=== PATIENT | male | born 1995 | race Caucasian/White ===

== ENCOUNTER 2017-04-30 22:48 | Emergency (ER) | payer MEDICAID, OTHER ==
[2017-04-30 23:01] VITALS: BP 102/63; PULSE 64; RESP 16; TEMP 98.5; O2SAT 99
[2017-04-30] MEDS ORDERED: Sodium Chloride 0.9% 1,000 ML IV STA (23:25)
[2017-04-30] MEDS ORDERED: Alum-Mag Hydrox-Simethicone Susp (30 mL) PO STA (23:25)
--- NOTE | 2017-04-30 23:28 | ED PDOC ---
Arrival/HPI - General Chief Complaint: GI Problem Time Seen by Provider: 04/30/17 22:49 Historian: Patient - History of Present Illness Narrative History of Present Illness (Text): 04/30/17 23:22 Dagoberto Patel is a 21 year old male who presents to the emergency department complaining of constant sharp, stabbing stomach pain for about five hours. Patient states that he took a pill to induce vomiting in an attempt to find relief. Patient was able to vomit but symptoms did not resolve. Patient denies any fever, chills, nausea, diarrhea, or any other complaint at this time. Time/Duration: 4-6 hours Symptom Onset: Gradual Symptom Course: Unchanged Severity Level: Mild Activities at Onset: Light Context: Home Past Medical History - Provider Review Nursing Documentation Reviewed: Yes - Infectious Disease Hx of Infectious Diseases: None - Psychiatric Hx Substance Use: No - Anesthesia Hx Anesthesia: No Family/Social History - Physician Review Nursing Documentation Reviewed: Yes Family/Social History: No Known Family HX Smoking Status: Heavy Smoker > 10 Cigarettes Daily Hx Alcohol Use: Yes Frequency of alcohol use: Socially Hx Substance Use: No Allergies/Home Meds Allergies/Adverse Reactions: Allergies No Known Allergies Allergy (Verified 02/01/16 02:22) Review of Systems - Physician Review All systems were reviewed & negative as marked: Yes - Review of Systems Constitutional: absent: Fevers, Night Sweats Eyes: absent: Vision Changes ENT: absent: Hearing Changes Respiratory: absent: SOB, Cough Cardiovascular: absent: Chest Pain Gastrointestinal: Abdominal Pain. absent: Diarrhea, Nausea Genitourinary Male: absent: Dysuria, Frequency Musculoskeletal: absent: Arthralgias, Back Pain, Neck Pain Skin: absent: Rash, Pruritis Neurological: absent: Headache, Dizziness Endocrine: absent: Diaphoresis Hemo/Lymphatic: absent: Adenopathy Psychiatric: absent: Anxiety, Depression Physical Exam - Physical Exam Narrative Physical Exam (Text): Constitutional: No acute distress. Head: Normocephalic. Atraumatic. Eyes: PERRL. ENT: Moist mucous membranes. Neck: Supple. Cardiovascular: Regular rate. Chest: No tenderness. Respiratory: Clear to auscultation bilaterally. GI: Soft. Nontender. Nondistended. Back: No CVA tenderness. Musculoskeletal: No tenderness or swelling of extremities. Skin: No rash. Neurologic: Alert, no focal deficit. Vital Signs Reviewed: Yes Vital Signs Temp Pulse Resp BP Pulse Ox 04/30/17 23:00 98.5 F 64 16 102/63 99 Temperature: Afebrile Blood Pressure: Normal Pulse: Regular Respiratory Rate: Normal Appearance: Positive for: Well-Appearing, Non-Toxic, Comfortable Pain Distress: None Mental Status: Positive for: Alert and Oriented X 3 Medical Decision Making ED Course and Treatment: 04/30/17 23:22 Impression: 21 year old male complaining of constant sharp, stabbing stomach pain for about 5 hours. Differential Diagnosis included but are not limited to: Gastritis vs. Pancreatitis Plan: -- Labs -- Maalox, Pepcid, Zofran, and IV Fluids -- Reassess and disposition Prior Visits: Notes and results from previous visits were reviewed. Patient last seen in the ED on 02/01/16 for right foot and left ankle pain that night. Patient was discharged home. Progress Notes: 05/01/17 00:17 Patient feels well, labs unremarkable. Will discharge home, f/u PMD, return to ER for worsening pain, fever, dyspnea, vomiting. - Lab Interpretations Lab Results: 04/30/17 23:48 04/30/17 23:48 Lab Results 04/30/17 23:48: WBC 5.0, RBC 5.90, Hgb 15.6, Hct 45.5, MCV 77.1 L, MCH 26.4, MCHC 34.3, RDW 15.7 H, Plt Count 234, MPV 9.6, Gran % 66.1, Lymph % (Auto) 25.2 , [place] % (Auto) 8.1 H, Eos % (Auto) 0.4 L, Baso % (Auto) 0.2, Gran # 3.33, Lymph # 1.3, [place] # 0.4, Eos # 0.0, Baso # 0.01 04/30/17 23:48: Sodium 139, Potassium 4.3, Chloride 99, Carbon Dioxide 30, Anion Gap 14, BUN 25 H, Creatinine 1.1, Est GFR ( Amer) > 60, Est GFR ( Non-Af Amer) > 60, Random Glucose 91, Calcium 9.7, Total Bilirubin 1.0, AST 31, ALT 34, Alkaline Phosphatase 50, Total Protein 7.6, Albumin 4.5, Globulin 3.1, Albumin/Globulin Ratio 1.5, Lipase 51 I have reviewed the lab results: Yes - Medication Orders Current Medication Orders: Discontinued Medications Al Hydrox/Mg Hydrox/Simethicone (Maalox Plus 30 Ml) 30 ml PO STAT STA Stop: 04/30/17 23:26 Last Admin: 04/30/17 23:46 Dose: 30 ml Famotidine (Pepcid) 20 mg IVP STAT STA Stop: 04/30/17 23:26 Last Admin: 04/30/17 23:46 Dose: 20 mg Sodium Chloride (Sodium Chloride 0.9%) 1,000 mls @ 999 mls/hr IV .Q1H1M STA Stop: 05/01/17 00:25 Last Admin: 04/30/17 23:42 Dose: 999 mls/hr Ondansetron HCl (Zofran Inj) 8 mg IVP STAT STA Stop: 04/30/17 23:26 Last Admin: 04/30/17 23:46 Dose: 8 mg - Scribe Statement The provider has reviewed the documentation as recorded by the Nehemiah Duncan Provider Scribe Attestation: All medical record entries made by the Nehemiah were at my direction and personally dictated by me. I have reviewed the chart and agree that the record accurately reflects my personal performance of the history, physical exam, medical decision making, and the department course for this patient. I have also personally directed, reviewed, and agree with the discharge instructions and disposition. Disposition/Present on Arrival - Present on Arrival Any Indicators Present on Arrival: No History of DVT/PE: No History of Uncontrolled Diabetes: No Urinary Catheter: No History of Decub. Ulcer: No History Surgical Site Infection Following: None - Disposition Have Diagnosis and Disposition been Completed?: Yes Diagnosis: Abdominal pain Disposition: HOME/ ROUTINE Disposition Time: 00:17 Patient Plan: Discharge Condition: STABLE Discharge Instructions (ExitCare): Abdominal Pain (ED) Prescriptions: Famotidine/Ca Carb/Mag Hydrox [Pepcid Complete Tablet Chew] 1 each PO BID #28 tab.chew Ondansetron ODT [Zofran ODT] 4 mg PO Q8 #12 odt Referrals: Jaime Camarena MD [Primary Care Provider] - Follow up with primary
[2017-05-01 00:05] LABS: BASO # 0.01 K/mm3 (0.0-2.0); BASO % 0.2 % (0.0-3.0); EOS % 0.4 % (1.5-5.0); GRAN # 3.33 (1.4-6.5); GRAN % 66.1 % (50.0-68.0); HEMOGLOBIN 15.6 gm/dL (14.0-18.0); LYMPH # 1.3 (1.2-3.4); LYMPH % 25.2 % (22.0-35.0); MEAN CELL VOLUME 77.1 fL (80.0-105.0); MEAN CORPUSCULAR HEMOGLOBIN 26.4 pg (25.0-35.0); MEAN CORPUSCULAR HGB CONC 34.3 g/dl (31.0-37.0); MEAN PLATELET VOLUME 9.6 fl (7.0-11.0); MONO # 0.4 (0.1-0.6); MONO % 8.1 % (1.0-6.0); PLATELET COUNT 234 10^3/uL (120.0-450.0); RED CELL DISTRIBUTION WIDTH 15.7 % (11.5-14.5)
[2017-05-01 00:10] LABS: ALB/GLOB RATIO 1.5 (1.1-1.8); ALBUMIN 4.5 g/dL (3.0-4.8); ALT/SGPT 34 U/L (7-56); AST/SGOT 31 U/L (15-59); BLOOD UREA NITROGEN 25 mg/dL (7-21); CALCIUM 9.7 mg/dL (8.4-10.5); GFR AFRICAN-AMERICAN > 60; GFR NON-AFRICAN AMERICAN > 60; LIPASE 51 U/L (23-300)
== END 2017-05-01 00:44 | disposition home or self-care (01) ==
LOC: ED 22:48
DX: R10.9 Unspecified abdominal pain (principal)
CPT/HCPCS: 80053; 83690; 85025; 96361; 96374; 96375; 99282; J2405; J7040